=== PATIENT | female | born 1960 | race Hispanic/Latino ===

== ENCOUNTER 2017-11-18 09:40 | Emergency (ER) | payer BC ==
[2017-11-18 09:58] VITALS: BMI 27.4
[2017-11-18 10:48] LABS: BASO % 0.4 % (0.0-2.0); EOS % 0.3 % (0.0-4.0); HEMOGLOBIN 11.9 g/dL (11.0-16.0); LYMPH # 2.3 K/uL (1.0-4.3); LYMPH % 31.2 % (20.0-40.0); MEAN CELL VOLUME 72.6 fL (81.0-99.0); MEAN CORPUSCULAR HEMOGLOBIN 24.7 pg (27.0-31.0); MONO # 0.5 K/uL (0.0-0.8); MONO % 6.7 % (0.0-10.0); NEUT # 4.4 K/uL (1.8-7.0); NEUT % 61.4 % (50.0-75.0); RBC 4.83 Mil/uL (3.80-5.20); RED CELL DISTRIBUTION WIDTH 14.9 % (11.5-14.5); WHITE BLOOD COUNT 7.2 K/uL (4.8-10.8)
--- NOTE | 2017-11-18 10:50 | C.PDOC ---
History Of Present Illness 56 year old female presents to the ED complaining of palpitations since waking up this morning. States she had difficulty breathing and felt her heart racing, associated with left jaw pain and tingling in the left hand. Patient reports having similar episodes of this in the past, and states it sometimes goes away so she decided to walk to work this morning, where EMS was called. She saw a dairy farmer, Dr. Nava, who ordered a nuclear stress test but patient states this had to be rescheduled. EMS gave Adenosine IVP in the field, initially 6 mg and then 12 mg. On arrival patient reports feeling better. PMD: Dr. Grant Time Seen by Provider: 11/18/17 10:19 Chief Complaint (Nursing): Palpitations History Per: Patient History/Exam Limitations: no limitations Onset/Duration Of Symptoms: Hrs Current Symptoms Are (Timing): Better Associated Symptoms: Dyspnea Past Medical History Reviewed: Historical Data, Nursing Documentation, Vital Signs Vital Signs: Last Vital Signs Temp 98.7 F 11/18/17 11:54 Pulse 90 11/18/17 11:54 Resp 18 11/18/17 11:54 BP 110/73 11/18/17 11:54 Pulse Ox 100 11/18/17 12:10 - Medical History PMH: Bronchitis Family History: States: No Known Family Hx - Social History Hx Tobacco Use: Yes Hx Alcohol Use: No Hx Substance Use: No - Immunization History Hx Tetanus Toxoid Vaccination: No Hx Influenza Vaccination: No Hx Pneumococcal Vaccination: No Review Of Systems Except As Marked, All Systems Reviewed And Found Negative. ENT: Positive for: Other (Left jaw pain) Cardiovascular: Positive for: Palpitations Respiratory: Positive for: Shortness of Breath Gastrointestinal: Negative for: Vomiting Neurological: Positive for: Numbness (tingling to left hand). Negative for: Dizziness, Other (syncope) Physical Exam - Physical Exam Appears: No Acute Distress, Agitated (appears jumpy) Skin: Normal Color, Warm, Dry Head: Atraumatic, Normacephalic, No Tenderness (to jaw) Eye(s): bilateral: Normal Inspection, PERRL, EOMI Nose: Normal Oral Mucosa: Moist Neck: Normal ROM, Supple Chest: Symmetrical Cardiovascular: Rhythm Regular (but slightly tachy) Respiratory: Normal Breath Sounds, No Accessory Muscle Use, Other (lungs clear to auscultation) Gastrointestinal/Abdominal: Soft, No Tenderness, No Distention Back: Normal Inspection, No CVA Tenderness, No Vertebral Tenderness Extremity: Bilateral: Atraumatic, Normal Color And Temperature, Normal ROM Neurological/Psych: Oriented x3, Normal Speech ED Course And Treatment - Laboratory Results Result Diagrams: 11/18/17 10:32 11/18/17 10:32 ECG: Interpreted By Me, Viewed By Me ECG Rhythm: Sinus Tachycardia (at 112, with no ST elevations or depressions) O2 Sat by Pulse Oximetry: 100 (RA) Pulse Ox Interpretation: Normal Medical Decision Making Medical Decision Making: Time: 10:31 Initial Plan: * EKG * Urine drug screen * Troponin I * CMP * CBC * Urinalysis * Ativan 1 mg PO * Reevaluation Labs reviewed, and are grossly normal. U tox (+) cannabinoids. 11:50 On reevaluation, patient reports feeling better after medication given. Vital signs are improved. Patient will be discharged home with rx for Ativan. Advised to follow up with her dairy farmer. Patient is understanding of and agrees with discharge plan. Disposition Counseled Patient/Family Regarding: Studies Performed, Diagnosis - Disposition Disposition: HOME/ ROUTINE Disposition Time: 12:07 Condition: STABLE Additional Instructions: Follow up with your doctor. Return to the Emergency Department with any further concerns. Prescriptions: LORazepam [Ativan] 1 mg PO TID PRN #12 tab PRN Reason: Anxiety Instructions: Palpitations Forms: General Discharge Instructions, [facility] (Yakut), Work Excuse - POA Present On Arrival: None - Clinical Impression Clinical Impression: Palpitations - Scribe Statement The provider has reviewed the documentation as recorded by the Scribe (Vicki Aguero) Provider Attestation: All medical record entries made by the Scribe were at my direction and personally dictated by me. I have reviewed the chart and agree that the record accurately reflects my personal performance of the history, physical exam, medical decision making, and the department course for this patient. I have also personally directed, reviewed, and agree with the discharge instructions and disposition.
[2017-11-18 11:09] LABS: SQUAMOUS EPITHIAL 4 /hpf (0-5); URINE BACTERIA RARE (<OCC); URINE BILIRUBIN NEGATIVE (NEGATIVE); URINE BLOOD NEGATIVE (NEGATIVE); URINE CLARITY Clear (Clear); URINE COLOR Yellow (YELLOW); URINE GLUCOSE (UA) NORMAL (Normal); URINE LEUKOCYTE ESTERASE NEG Leu/uL (Negative); URINE NITRATE NEGATIVE (NEGATIVE); URINE PROTEIN NEGATIVE (NEGATIVE); URINE UROBILINOGEN NORMAL mg/dL (0.2-1.0)
[2017-11-18 11:23] LABS: BARBITURATES, UR NEGATIVE (NEGATIVE); BENZODIAZEPINES, UR NEGATIVE (NEGATIVE); OPIATES, UR NEGATIVE (NEGATIVE); PHENCYCLIDINE, UR NEGATIVE (NEGATIVE)
[2017-11-18 11:29] LABS: ALB/GLOB RATIO 1.2 (1.0-2.1); ALBUMIN 3.7 g/dL (3.5-5.0); ALT/SGPT 23 U/L (9-52); AST/SGOT 18 U/L (14-36); BLOOD UREA NITROGEN 10 mg/dL (7-17); CALCIUM 8.8 mg/dl (8.6-10.4); GFR AFRICAN-AMERICAN > 60; GFR NON-AFRICAN AMERICAN > 60
[2017-11-18 11:58] VITALS: BP 110/73; PULSE 90; RESP 18; TEMP 98.7
[2017-11-18 12:07] VITALS: O2SAT 100
--- NOTE | 2017-11-20 16:46 | CARD ---
APPROVED REPORT EKG Measurement Heart [id number] <Conclusion> Sinus tachycardia Possible Left atrial enlargement Borderline ECG
== END 2017-11-18 12:25 | disposition home or self-care (01) ==
LOC: C.ER 09:40
DX: R00.2 Palpitations (principal)
CPT/HCPCS: 80053; 81001; 84484; 85025; 99285; G0480